=== PATIENT | female | born 1980 | race Caucasian/White ===

== ENCOUNTER 2018-10-01 10:49 | Inpatient (IN) | payer SELFPAY ==
[2018-10-01] MEDS ORDERED: ASPIRIN 81 MG TABLET, CHEWABLE PO ONE (11:45)
--- NOTE | 2018-10-01 11:47 | ER Document Report ---
ED Medical Screen (RME) - General Chief Complaint: Chest Pain Stated Complaint: CHEST PAIN Time Seen by Provider: 10/01/18 11:45 Primary Care Provider: EUGENIA MATTHEW [Primary Care Provider] - Follow up as needed Information source: Patient Notes: Patient presents with left-sided chest pain that started yesterday resolved and then returned again this morning. Patient denies any cough or cold symptoms. Patient denies any fever. Patient does report increased pain with deep inspiration. Patient denies any family history of early CAD hx: LAP-BAND I have greeted and performed a rapid initial assessment of this patient. A comprehensive ED assessment and evaluation of the patient, analysis of test results and completion of the medical decision making process will be conducted by additional ED providers. TRAVEL OUTSIDE OF THE [place] IN LAST 30 DAYS: No - Related Data Allergies/Adverse Reactions: No Known Allergies Allergy (Unverified 09/14/12 17:11) Past Medical History - Past Medical History Cardiac Medical History: Denies: Hx Coronary Artery Disease, Hx Heart Attack, Hx Hypertension Pulmonary Medical History: Denies: Hx Asthma, Hx Bronchitis, Hx COPD, Hx Pneumonia Neurological Medical History: Denies: Hx Cerebrovascular Accident, Hx Seizures Musculoskeltal Medical History: Denies Hx Arthritis Past Surgical History: Reports: Hx Cholecystectomy. Denies: Hx Pacemaker - Immunizations Hx Diphtheria, Pertussis, Tetanus Vaccination: Yes Physical Exam - Vital signs Vitals: Temp Pulse Resp BP Pulse Ox 98.7 F 96 18 148/85 H 97 10/01/18 11:04 10/01/18 11:04 10/01/18 11:04 10/01/18 11:04 10/01/18 11:04 - Cardiovascular Rhythm: Regular Heart sounds: S1 appreciated, S2 appreciated Murmur: No Course - Vital Signs Vital signs: Temp Pulse Resp BP Pulse Ox 98.7 F 96 18 148/85 H 97 10/01/18 11:04 10/01/18 11:04 10/01/18 11:04 10/01/18 11:04 10/01/18 11:04 Doctor's Discharge - Discharge Referrals: EUGENIA MATTHEW [Primary Care Provider] - Follow up as needed
--- NOTE | 2018-10-01 12:29 | RADIOLOGY REPORT (SQ) ---
EXAM DESCRIPTION: CHEST 2 VIEWS COMPLETED DATE/TIME: 10/01/2018 11:59 am REASON FOR STUDY: cp COMPARISON: None. EXAM PARAMETERS: NUMBER OF VIEWS: two views TECHNIQUE: Digital Frontal and Lateral radiographic views of the chest acquired. RADIATION DOSE: NA LIMITATIONS: none FINDINGS: LUNGS AND PLEURA: No consolidation, masses or pneumothorax. Small left pleural effusion.. MEDIASTINUM AND HILAR STRUCTURES: No masses or contour abnormalities. HEART AND VASCULAR STRUCTURES: Heart normal size. No evidence for failure. BONES: No acute findings. HARDWARE: Gastric tubing. IMPRESSION: Small left pleural effusion. TECHNICAL DOCUMENTATION: JOB ID: [id number] [employer]- All Rights Reserved Reading location - IP/workstation name: [email or web address]
[2018-10-01 13:21] LABS: ABSOLUTE BASOPHILS # (AUTO) 0.1 10^3/uL (0.0-0.2); ABSOLUTE MONOCYTES (AUTO) 0.7 10^3/uL (0.1-1.4); ABSOLUTE NEUT (AUTO) 11.3 10^3/uL (1.7-8.2); BASOPHILS % (AUTO) 0.4 % (0-2); EOSINOPHILS % (AUTO) 0.2 % (0-6); HEMATOCRIT 40.3 % (36.0-47.0); HEMOGLOBIN 13.5 g/dL (12.0-15.5); LYMPHOCYTES % (AUTO) 7.8 % (13-45); MEAN CORPUSCULAR HEMOGLOBIN 29.7 pg (27.0-33.4); MEAN CORPUSCULAR HGB CONC 33.4 g/dL (32.0-36.0); MEAN CORPUSCULAR VOLUME 89 fl (80-97); MONOCYTES % (AUTO) 5.5 % (3-13); PLATELET COUNT 196 10^3/uL (150-450); RED BLOOD COUNT 4.53 10^6/uL (3.72-5.28); RED CELL DISTRIBUTION WIDTH 12.6 % (11.5-14.0); SEGMENTED NEUTROPHILS % (AUTO) 86.1 % (42-78); TOTAL CELLS COUNTED % (AUTO) 100 %; WHITE BLOOD COUNT 13.1 10^3/uL (4.0-10.5)
[2018-10-01 13:41] LABS: ALANINE AMINOTRANSFERASE 25 U/L (9-52); ALBUMIN 3.8 g/dL (3.5-5.0); ALKALINE PHOSPHATASE 133 U/L (38-126); ANION GAP 10 (5-19); ASPARTATE AMINO TRANSFERASE 21 U/L (14-36); BILIRUBIN,DIRECT 0.4 mg/dL (0.0-0.4); BILIRUBIN,TOTAL 0.9 mg/dL (0.2-1.3); BLOOD UREA NITROGEN 11 mg/dL (7-20); CALCIUM 9.7 mg/dL (8.4-10.2); CARBON DIOXIDE 29 mmol/L (22-30); CHLORIDE 101 mmol/L (98-107); CREATINE KINASE 22 U/L (30-135); GLUCOSE 95 mg/dL (75-110); POTASSIUM 4.3 mmol/L (3.6-5.0); SODIUM 139.5 mmol/L (137-145); TOTAL PROTEIN 7.2 g/dL (6.3-8.2)
[2018-10-01 13:54] LABS: CREATINE KINASE MB < 0.22 ng/mL (<4.55); TROPONIN I < 0.012 ng/mL
--- NOTE | 2018-10-01 15:33 | ER Document Report ---
ED General - General Chief Complaint: Chest Pain Stated Complaint: CHEST PAIN Time Seen by Provider: 10/01/18 11:45 Mode of Arrival: Ambulatory Information source: Patient Notes: This is a 38-year-old female with no significant medical problems who presents to the emergency room with some left-sided chest pain which is worse with deep breathing and torso movement. She denies any significant shortness of breath to me. She denies any calf pain. There is no family history of blood clots (the patient is accompanied by both her parents). The patient does not smoke. 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 She spent the day in [place] and came back and her symptoms have persisted. Her only other travel history is a trip to [place] to go on a cruise August 10 thr August 17. TRAVEL OUTSIDE OF THE [place] IN LAST 30 DAYS: No - HPI Onset: Last week Onset/Duration: Gradual Quality of pain: Dull Severity: Moderate Pain Level: 2 Associated symptoms: Chest pain, Shortness of breath. denies: Headache Exacerbated by: Deep breathing Relieved by: Denies Similar symptoms previously: No Recently seen / treated by doctor: Yes - Related Data Allergies/Adverse Reactions: No Known Allergies Allergy (Unverified 09/14/12 17:11) Past Medical History - General Information source: Patient - Social History Smoking Status: Never Smoker Cigarette use (# per day): No Chew tobacco use (# tins/day): No Frequency of alcohol use: None Drug Abuse: None Lives with: Family Family History: None Patient has suicidal ideation: No Patient has homicidal ideation: No - Past Medical History Cardiac Medical History: Denies: Hx Coronary Artery Disease, Hx Heart Attack, Hx Hypertension Pulmonary Medical History: Denies: Hx Asthma, Hx Bronchitis, Hx COPD, Hx Pneumonia Neurological Medical History: Denies: Hx Cerebrovascular Accident, Hx Seizures Renal/ Medical History: Denies: Hx Peritoneal Dialysis Musculoskeletal Medical History: Denies Hx Arthritis Past Surgical History: Reports: Hx Cholecystectomy. Denies: Hx Pacemaker - Immunizations Hx Diphtheria, Pertussis, Tetanus Vaccination: Yes Review of Systems - Review of Systems Constitutional: denies: Chills, Fever EENT: No symptoms reported Cardiovascular: See HPI Respiratory: See HPI Gastrointestinal: No symptoms reported Genitourinary: No symptoms reported Female Genitourinary: No symptoms reported Musculoskeletal: No symptoms reported Skin: No symptoms reported Hematologic/Lymphatic: No symptoms reported Neurological/Psychological: No symptoms reported Physical Exam - Vital signs Vitals: Temp Pulse Resp BP Pulse Ox 98.7 F 96 18 148/85 H 97 10/01/18 11:04 10/01/18 11:04 10/01/18 11:04 10/01/18 11:04 10/01/18 11:04 Notes: Physical exam: GENERAL: She is alert and oriented x3, no acute distress. Blood pressure is 108/73 and her pulse is 95, O2 sat 98% on room air and her respiratory rate is 14 HEAD: Atraumatic, normocephalic. EYES: Pupils equal round and reactive to light, extraocular movements intact, sclera anicteric, conjunctiva are normal. ENT: TMs normal, nares patent, oropharynx clear without exudates. Moist mucous membranes. NECK: Normal range of motion, supple without obvious mass or JVD. LUNGS: Breath sounds clear to auscultation bilaterally and equal. No wheezes rales or rhonchi. HEART: Regular rate and rhythm without murmurs, rubs or gallops. ABDOMEN: Soft, normoactive bowel sounds. No tenderness to palpation. No guarding, no rebound. No masses appreciated. EXTREMITIES: Normal range of motion, no pitting or edema. No clubbing or cyanosis. NEUROLOGICAL: Cranial nerves II through XII grossly intact. Normal speech, moving all extremities. PSYCH: Normal mood, normal affect. SKIN: Warm, Dry, normal turgor, no rashes or lesions noted. Course - Re-evaluation Re-evalutation: 10/01/18 23:02 I discussed the case with the radiologist and the CT has been reviewed. I discussed CT findings with the patient and the family and I reviewed the actual films with them and answered their questions. I discussed case with Dr. Ferrer and the patient will be admitted to the hospital. She has been started on parenteral anticoagulation. - Vital Signs Vital signs: Temp Pulse Resp BP Pulse Ox 99 F 108 H 18 115/57 L 100 10/01/18 19:31 10/01/18 19:31 10/01/18 19:31 10/01/18 19:31 06/02/19 19:31 - Laboratory Result Diagrams: 10/01/18 13:00 10/01/18 13:00 Laboratory results interpreted by me: 10/01/18 10/01/18 13:00 13:00 WBC 13.1 H Seg Neutrophils % 86.1 H Lymphocytes % 7.8 L Absolute Neutrophils 11.3 H Alkaline Phosphatase 133 H Creatine Kinase 22 L - Diagnostic Test Radiology reviewed: Image reviewed, Reports reviewed - CT of the - EKG Interpretation by Me Rate: Normal Rhythm: NSR - EKG shows normal sinus rhythm with a 95, no acute ST-T wave rita nges Critical Care Note - Critical Care Note Total time excluding time spent on procedures (mins): 60 Discharge - Discharge Clinical Impression: Pulmonary embolism Condition: Stable Disposition: ADMITTED INPATIENT Admitting Provider: Carissa (Hospitalist) Unit Admitted: [facility]
[2018-10-01] MEDS ORDERED: ENOXAPARIN SODIUM INJ 100 MG/1 ML DISP.SYRIN SUBCUT ONE (17:02)
--- NOTE | 2018-10-01 17:13 | RADIOLOGY REPORT (SQ) ---
EXAM DESCRIPTION: CTA CHEST COMPLETED DATE/TIME: 10/01/2018 4:43 pm REASON FOR STUDY: cp Chest pain. COMPARISON: Chest x-ray 10/01/2018, CT abdomen and pelvis 01/06/2012. TECHNIQUE: CT scan of the chest performed using helical scanning technique with dynamic intravenous contrast injection. Images reviewed with lung, soft tissue and bone windows. Reconstructed coronal and sagittal MPR images reviewed. Additional 3 dimensional post-processing performed to develop Maximal Intensity Projection images (IN P). All images stored on PACS. All CT scanners at this facility use dose modulation, iterative reconstruction, and/or weight based d osing when appropriate to reduce radiation dose to as low as reasonably achievable (ALARA). [facility]: Dose Right [facility]: CareDose [facility]: Dose Right [facility]: Teradose 4D [facility]: PlatformQ CONTRAST TYPE AND DOSE: contrast/concentration: Isovue 350.00 mg/ml; Total Contrast Delivered: 76.0 ml; Total Saline Delivered: 110.0 ml Contrast bolus optimized for the pulmonary arteries. Not diagnostic for the aorta. RENAL FUNCTION: Creatinine 0.71 RADIATION DOSE: CT Rad equipment meets quality standard of care and radiation dose reduction techniq ues were employed. CTDIvol: 14.3 - 16.5 mGy. DLP: 496 mGy-cm. . LIMITATIONS: None. FINDINGS: LUNGS AND PLEURA: Pleural-based ground-glass opacities are seen at the right lower lobe, l ingula and left lower lobe. There is a small left pleural effusion and mild atelectasis at the lef t lower lobe. No pneumothorax. AORTA AND GREAT VESSELS: No thoracic aortic aneurysm. Contrast bolus not optimized for the aorta. HEART: No pericardial effusion. No significant coronary artery calcifications. PULMONARY ARTERIES: Multiple filling defects are seen within bilateral segmental and subsegmental pul monary arteries. On the right, the filling defects are extending into the right main pulmonary arter y. No saddle embolus is noted. HILAR AND MEDIASTINAL STRUCTURES: No identified masses or abnormal nodes. HARDWARE: None in the chest. UPPER ABDOMEN: There is wall thickening of the esophagus. The patient is status post lap band proce dure and status post cholecystectomy. Subcentimeter hypodensity at the right hepatic lobe is too sma ll to be adequately characterized. BONES: No acute or significant finding. 3D MIPS: Confirm above findings. IMPRESSION: 1. Acute bilateral pulmonary emboli. 2. Bilateral pleural-based ground-glass opacities, given the above findings, these may represent pulm onary infarcts. 3. Small left pleural effusion and mild left basilar atelectasis. 4. Wall thickening at the esophagus, may be secondary to esophagitis. Evaluation with upper endoscop y may be worthwhile to exclude underlying neoplasm. COMMUNICATION The critical information above was relayed directly by me by telephone to Dr. Burt overton 10/01/2018 at 17:02 hrs with readback verification. Quality ID # [id number]: Final reports with documentation of one or more dose reduction techniques (e.g., Au tomated exposure control, adjustment of the mA and/or kV according to patient size, use of iterative reconstruction technique) TECHNICAL DOCUMENTATION: JOB ID: [id number] [employer]- All Rights Reserved Reading location - IP/workstation name: [email or web address]
--- NOTE | 2018-10-01 17:35 | EKG REPORT ---
SEVERITY:- NORMAL ECG - SINUS RHYTHM : Confirmed by: Cierra Nicole MD 01-Oct-2018 17:34:25
--- NOTE | 2018-10-01 18:08 | PDOC H&P ---
History of Present Illness Admission Date/PCP: 10/01/18 17:56 History of Present Illness: LEORA KRUEGER is a 38 year old female with no significant past medical history who was in her usual state of health until yesterday morning. She said she began to feel an aching pain in her side and she took some ibuprofen and said it went away for several hours until about 11:00 last night. She said the pain is been off and on since then. She said it hurts when she takes a deep breath. The pain is located in her left lateral chest. It does not radiate. It does not get worse with exertion. She is never had anything like this before. No hemoptysis. She is not on any medications at home and takes no [id number] supplements. She does not smoke. She has no history of malignancy. She has no family history of a clotting disorder. She did take a drive down to [place] in July and she is had a couple of trips that were 3 or 4 hours each in the car since then. Cardiac enzymes are negative. No EKG changes but her heart rate is little elevated. CT scan was positive for bilateral pulmonary emboli. Past Medical History Cardiac Medical History: Denies: Coronary Artery Disease, Myocardial Infarction, Hypertension Pulmonary Medical History: Denies: Asthma, Bronchitis, Chronic Obstructive Pulmonary Disease (COPD), Pneumonia Neurological Medical History: Denies: Seizures Musculoskeltal Medical History: Denies: Arthritis Hematology: Denies: Anemia Past Surgical History Past Surgical History: Reports: Cholecystectomy Denies: Pacemaker Social History Smoking Status: Never Smoker Family History Family History: None Parental Family History Reviewed: Yes - Both parents have hypertension, has hyperlipidemia Children Family History Reviewed: Yes - No known medical problems Sibling(s) Family History Reviewed.: Yes - No known medical problems Medication/Allergy Home Medications: No Home Medications 09/14/12 Allergies/Adverse Reactions: No Known Allergies Allergy (Unverified 09/14/12 17:11) Review of Systems All systems: reviewed and no additional remarkable complaints except as stated - All systems were reviewed and were negative except as noted in the HPI Physical Exam Vital Signs: Temp Pulse Resp BP Pulse Ox 98.7 F 96 18 124/79 98 10/01/18 11:04 10/01/18 11:04 10/01/18 17:01 10/01/18 17:01 10/01/18 17:01 Intake & Output 09/30/18 10/01/18 10/02/18 06:59 06:59 06:59 Weight 87.6 kg General appearance: PRESENT: no acute distress, cooperative, obese Head exam: PRESENT: atraumatic, normocephalic Eye exam: PRESENT: EOMI, PERRLA. ABSENT: conjunctival injection, nystagmus, scleral icterus Ear exam: PRESENT: normal external ear exam Mouth exam: PRESENT: moist, neck supple Throat exam: ABSENT: post pharyngeal erythema Neck exam: PRESENT: full ROM. ABSENT: carotid bruit, JVD, lymphadenopathy, meningismus, tenderness, thyromegaly Respiratory exam: PRESENT: clear to auscultation shana, symmetrical, unlabored, other - Pain when taking a deep breath in the left lateral chest. ABSENT: acces kirill muscle use, chest wall tenderness, crackles, prolonged expiratory phas, rhonchi, tachypnea, wheezes Cardiovascular exam: PRESENT: +S1, +S2, tachycardia Pulses: PRESENT: normal carotid pulses Vascular exam: PRESENT: normal capillary refill GI/Abdominal exam: PRESENT: normal bowel sounds, soft. ABSENT: distended, guarding, rebound, tenderness Extremities exam: ABSENT: clubbing, pedal edema Musculoskeletal exam: PRESENT: normal inspection. ABSENT: deformity Neurological exam: PRESENT: alert, awake, oriented to person, oriented to place, oriented to time, oriented to situation, CN II-XII grossly intact. ABSENT: mo tor sensory deficit Psychiatric exam: PRESENT: appropriate affect, normal mood Skin exam: PRESENT: dry, warm Results Laboratory Results: 10/01/18 13:00 10/01/18 13:00 10/01/18 10/01/18 10/01/18 13:00 13:00 13:00 WBC 13.1 H RBC 4.53 Hgb 13.5 Hct 40.3 MCV 89 MCH 29.7 MCHC 33.4 RDW 12.6 Plt Count 196 Seg Neutrophils % 86.1 H Lymphocytes % 7.8 L Monocytes % 5.5 Eosinophils % 0.2 Basophils % 0.4 Absolute Neutrophils 11.3 H Absolute Lymphocytes 1.0 Absolute Monocytes 0.7 Absolute Eosinophils 0.0 Absolute Basophils 0.1 Sodium 139.5 Potassium 4.3 Chloride 101 Carbon Dioxide 29 Anion Gap 10 BUN 11 Creatinine 0.71 Est GFR ( Amer) > 60 Est GFR (Non-Af Amer) > 60 Glucose 95 Calcium 9.7 Total Bilirubin 0.9 AST 21 ALT 25 Alkaline Phosphatase 133 H Total Protein 7.2 Albumin 3.8 Serum HCG, Qual NEGATIVE 10/01/18 10/01/18 10/01/18 13:00 13:00 15:50 Creatine Kinase 22 L CK-MB (CK-2) < 0.22 Troponin I < 0.012 < 0.012 Impressions: Chest X-Ray 10/01/18 11:45 IMPRESSION: Small left pleural effusion. Chest/Abdomen CTA 10/01/18 15:29 IMPRESSION: 1. Acute bilateral pulmonary emboli. 2. Bilateral pleural-based ground-glass opacities, given the above findings, these may represent pulmonary infarcts. 3. Small left pleural effusion and mild left basilar atelectasis. 4. Wall thickening at the esophagus, may be secondary to esophagitis. Evaluation with upper endoscopy may be worthwhile to exclude underlying neoplasm. Assessment and Plan - Diagnosis (1) Bilateral pulmonary embolism Is this a current diagnosis for this admission?: Yes Plan: No signs of right heart strain. No septal flattening on CT and cardiac enzymes are negative. We will start Lovenox. Because of the extensive nature we will give her Lovenox for couple of days and then plan to transition to Eliquis twice a day for 6 months. - Time Time Spent with patient: 60 minutes Time Spent with patient: 35 or more minutes Anticipated discharge: Home - Inpatient Certification Based on my medical assessment, after consideration of the patient's comorbidities, presenting symptoms, or acuity I expect that the services needed warrant INPATIENT care.: Yes I certify that my determination is in accordance with my understanding of Medicare's requirements for reasonable and necessary INPATIENT services [42 CFR 412.3e].: Yes Medical Necessity: Need Close Monitoring Due to Risk of Patient Decompensation, Need For Continuous Telemetry Monitoring, Risk of Complication if Not Cared For in Hospital
--- NOTE | 2018-10-01 18:11 | ADVANCED CARE ---
- Diagnosis (1) Bilateral pulmonary embolism Diagnosis Current: Yes Resuscitation Status: Full Code Discussion: At her age and good health she wants everything done to prolong her life. Time Spent: 10 minutes
[2018-10-01] MEDS ORDERED: MORPHINE SULFATE 10 MG/ML INJ IV PRN ×3 (19:33→20:08)
[2018-10-01] MEDS: MORPHINE SULFATE 10 MG/ML INJ IV PRN ×2 (20:16→22:16)
[2018-10-02] MEDS: MORPHINE SULFATE 10 MG/ML INJ IV PRN ×4 (00:56→22:05)
[2018-10-02 07:07] LABS: HEMATOCRIT 35.8 % (36.0-47.0); HEMOGLOBIN 12.2 g/dL (12.0-15.5); MEAN CORPUSCULAR HEMOGLOBIN 30.1 pg (27.0-33.4); MEAN CORPUSCULAR HGB CONC 33.9 g/dL (32.0-36.0); MEAN CORPUSCULAR VOLUME 89 fl (80-97); PLATELET COUNT 177 10^3/uL (150-450); RED BLOOD COUNT 4.03 10^6/uL (3.72-5.28); RED CELL DISTRIBUTION WIDTH 12.5 % (11.5-14.0); WHITE BLOOD COUNT 8.2 10^3/uL (4.0-10.5)
[2018-10-02] MEDS: ENOXAPARIN SODIUM INJ 100 MG/1 ML DISP.SYRIN SUBCUT SCH ×2 (10:07→21:22)
--- NOTE | 2018-10-02 16:28 | PDOC PROGRESS REPORT ---
Subjective Progress Note for:: 10/02/18 Subjective:: No adverse events overnight. No new complaints. Heart rate still little bit elevated but improved compared to yesterday. Still has a little bit of discomfort with deep inspiration. No hemoptysis. Reason For Visit: BILATERAL PE Physical Exam Vital Signs: Temp Pulse Resp BP Pulse Ox 98.3 F 89 16 120/75 99 10/02/18 11:11 10/02/18 11:11 10/02/18 11:11 10/02/18 11:11 10/02/18 11:11 Intake & Output 10/01/18 10/02/18 10/03/18 06:59 06:59 06:59 Intake Total 300 100 Output Total 250 Balance 300 -150 Weight 89.3 kg General appearance: PRESENT: no acute distress, cooperative, obese Respiratory exam: PRESENT: clear to auscultation shana, symmetrical, unlabored. ABSENT: accessory muscle use, chest wall tenderness, crackles, prolonged expiratory phas, rhonchi, tachypnea, wheezes Cardiovascular exam: PRESENT: tachycardia Pulses: PRESENT: normal carotid pulses Vascular exam: PRESENT: normal capillary refill GI/Abdominal exam: PRESENT: normal bowel sounds, soft. ABSENT: distended, guarding, rebound, tenderness Extremities exam: ABSENT: clubbing, pedal edema Musculoskeletal exam: PRESENT: normal inspection. ABSENT: deformity Neurological exam: PRESENT: alert, awake, oriented to person, oriented to place, oriented to time, oriented to situation Psychiatric exam: PRESENT: appropriate affect, normal mood Skin exam: PRESENT: dry, warm Results Laboratory Results: 10/02/18 06:52 10/01/18 13:00 10/02/18 06:52 WBC 8.2 RBC 4.03 Hgb 12.2 Hct 35.8 L MCV 89 MCH 30.1 MCHC 33.9 RDW 12.5 Plt Count 177 10/01/18 10/01/18 10/01/18 13:00 13:00 15:50 Creatine Kinase 22 L CK-MB (CK-2) < 0.22 Troponin I < 0.012 < 0.012 Impressions: Chest X-Ray 10/01/18 11:45 IMPRESSION: Small left pleural effusion. Chest/Abdomen CTA 10/01/18 15:29 IMPRESSION: 1. Acute bilateral pulmonary emboli. 2. Bilateral pleural-based ground-glass opacities, given the above findings, these may represent pulmonary infarcts. 3. Small left pleural effusion and mild left basilar atelectasis. 4. Wall thickening at the esophagus, may be secondary to esophagitis. Evaluation with upper endoscopy may be worthwhile to exclude underlying neoplasm. Assessment and Plan - Diagnosis (1) Bilateral pulmonary embolism Is this a current diagnosis for this admission?: Yes Plan: Continue Lovenox twice daily. If her heart rates down tomorrow and a chest x- ray does not show accumulation of any substantial pleural fluid, she can be discharged home on Eliquis. - Time Time Spent with patient: 15-24 minutes
[2018-10-03] MEDS: MORPHINE SULFATE 10 MG/ML INJ IV PRN ×3 (00:36→08:12)
[2018-10-03 06:26] LABS: HEMATOCRIT 36.1 % (36.0-47.0); HEMOGLOBIN 12.3 g/dL (12.0-15.5); MEAN CORPUSCULAR HGB CONC 34.1 g/dL (32.0-36.0); MEAN CORPUSCULAR VOLUME 88 fl (80-97); PLATELET COUNT 203 10^3/uL (150-450); RED CELL DISTRIBUTION WIDTH 12.4 % (11.5-14.0); WHITE BLOOD COUNT 7.8 10^3/uL (4.0-10.5)
[2018-10-03] MEDS: ENOXAPARIN SODIUM INJ 100 MG/1 ML DISP.SYRIN SUBCUT SCH (08:12)
--- NOTE | 2018-10-03 08:41 | RADIOLOGY REPORT (SQ) ---
EXAM DESCRIPTION: CHEST SINGLE VIEW COMPLETED DATE/TIME: 10/03/2018 8:03 am REASON FOR STUDY: left pleural effusion COMPARISON: 10/01/2018. EXAM PARAMETERS: NUMBER OF VIEWS: One view. TECHNIQUE: Single frontal radiographic view of the chest acquired. RADIATION DOSE: NA LIMITATIONS: None. FINDINGS: LUNGS AND PLEURA: No opacities, masses or pneumothorax. No pleural effusion. MEDIASTINUM AND HILAR STRUCTURES: No masses. Contour normal. HEART AND VASCULAR STRUCTURES: Heart normal in size. Normal vasculature. BONES: No acute findings. HARDWARE: Gastric banding hardware. OTHER: No other significant finding. IMPRESSION: NO ACUTE RADIOGRAPHIC FINDING IN THE CHEST. NO LARGE PLEURAL EFFUSION EVIDENT. TECHNICAL DOCUMENTATION: JOB ID: [id number] [employer]- All Rights Reserved Reading location - IP/workstation name: [email or web address]
--- NOTE | 2018-10-03 12:35 | PDOC DISCHARGE SUMMARY ---
General - Admit/Disc Date/PCP Admission Date/Primary Care Provider: 10/01/18 17:56 Discharge Date: 10/03/18 - Additional Information Resuscitation Status: Full Code Home Medications: No Home Medications 10/02/18 History of Present Illness History of Present Illness: LEORA KRUEGER is a 38 year old female with no significant past medical history who was in her usual state of health until yesterday morning. She said she began to feel an aching pain in her side and she took some ibuprofen and said it went away for several hours until about 11:00 last night. She said the pain is been off and on since then. She said it hurts when she takes a deep breath. The pain is located in her left lateral chest. It does not radiate. It does not get worse with exertion. She is never had anything like this before. No hemoptysis. She is not on any medications at home and takes no [id number] supplements. She does not smoke. She has no history of malignancy. She has no family history of a clotting disorder. She did take a drive down to [place] in July and she is had a couple of trips that were 3 or 4 hours each in the car since then. Cardiac enzymes are negative. No EKG changes but her heart rate is little elevated. CT scan was positive for bilateral pulmonary emboli. Hospital Course Hospital Course: This is a 38 years old female patient with no significant medical history with chief complaint of chest pain. CT of the chest is positive for acute bilateral pulmonary emboli. Patient does not have significant risk factor for emboli except long distance drive. It has been managed with therapeutic dose of Lovenox. This morning I seen patient resting in bed comfortably she is not in pain or distress. I will switch her Lovenox to Eliquis and discharge her today. Her vital signs are within normal limits. Physical Exam Vital Signs: Temp Pulse Resp BP Pulse Ox 98.2 F 93 16 120/69 100 10/03/18 07:17 10/03/18 07:17 10/03/18 07:17 10/03/18 07:17 10/03/18 07:17 Intake & Output 10/02/18 10/03/18 10/04/18 06:59 06:59 06:59 Intake Total 300 600 Output Total 1250 Balance 300 -650 Weight 89.3 kg 88.5 kg General appearance: PRESENT: no acute distress, well-developed, well-nourished Head exam: PRESENT: atraumatic, normocephalic Eye exam: PRESENT: conjunctiva pink, EOMI, PERRLA. ABSENT: scleral icterus Ear exam: PRESENT: normal external ear exam Mouth exam: PRESENT: moist, tongue midline Neck exam: ABSENT: carotid bruit, JVD, lymphadenopathy, thyromegaly Respiratory exam: PRESENT: clear to auscultation shana. ABSENT: rales, rhonchi, wheezes Cardiovascular exam: PRESENT: RRR. ABSENT: diastolic murmur, rubs, systolic murmur Pulses: PRESENT: normal dorsalis pedis pul Vascular exam: PRESENT: normal capillary refill GI/Abdominal exam: PRESENT: normal bowel sounds, soft. ABSENT: distended, guarding, mass, organolmegaly, rebound, tenderness Rectal exam: PRESENT: deferred Extremities exam: PRESENT: full ROM. ABSENT: calf tenderness, clubbing, pedal edema Neurological exam: PRESENT: alert, awake, oriented to person, oriented to place, oriented to time, oriented to situation, CN II-XII grossly intact. ABSENT: motor sensory deficit Psychiatric exam: PRESENT: appropriate affect, normal mood. ABSENT: homicidal ideation, suicidal ideation Skin exam: PRESENT: dry, intact, warm. ABSENT: cyanosis, rash Results Laboratory Results: 10/03/18 06:06 10/01/18 13:00 10/03/18 06:06 WBC 7.8 RBC 4.10 Hgb 12.3 Hct 36.1 MCV 88 MCH 30.0 MCHC 34.1 RDW 12.4 Plt Count 203 10/01/18 10/01/18 10/01/18 13:00 13:00 15:50 Creatine Kinase 22 L CK-MB (CK-2) < 0.22 Troponin I < 0.012 < 0.012 Impressions: Chest/Abdomen CTA 10/01/18 15:29 IMPRESSION: 1. Acute bilateral pulmonary emboli. 2. Bilateral pleural-based ground-glass opacities, given the above findings, these may represent pulmonary infarcts. 3. Small left pleural effusion and mild left basilar atelectasis. 4. Wall thickening at the esophagus, may be secondary to esophagitis. Evaluation with upper endoscopy may be worthwhile to exclude underlying neoplasm. Chest X-Ray 10/03/18 08:00 IMPRESSION: NO ACUTE RADIOGRAPHIC FINDING IN THE CHEST. NO LARGE PLEURAL EFFUSION EVIDENT. Qualifiers - * PATIENT BEING DISCHARGED WITH ANY OF THE FOLLOWING DIAGNOSIS: No Acute Heart Failure Is this a Heart Failure Patient?: No
[2018-10-03 12:46] VITALS: BP 115/57
== END 2018-10-03 14:30 | disposition home or self-care (01) | DRG 176 ==
LOC: ER 10:49 → UNDOADMIN 17:56 → EH 17:56 → 3W 19:05
PROVIDERS: ADMIT Family Medicine; ATTEND Family Medicine
DX: I26.99 Other pulmonary embolism without acute cor pulmonale (principal); Z90.49 Acquired absence of other specified parts of digestive tract; Z82.49 Family history of ischemic heart disease and other diseases of the circulatory system
CPT/HCPCS: 36415; 71045; 71046; 71275; 80053; 82550; 82553; 84484; 84703; 85025; 85027; 93005; 93010; 96372; 99291; J1650; J2270